=== PATIENT | male | born 1975 | race Two or more races ===

== ENCOUNTER 2024-05-03 16:21 | Inpatient (IN) | payer OTHER ==
[~2024-05-03] VITALS: Ht 157.5 cm; Wt 48.5 kg
[2024-05-03 17:43] LABS: BASOPHILS % (AUTO) 0.3 % (0.0-2.0); EOSINOPHILS # (AUTO) 0.2 K/uL (0.0-0.7); EOSINOPHILS % (AUTO) 1.3 % (0.0-6.0); HEMATOCRIT 32 % (39-51); HEMOGLOBIN 10.4 g/dL (13.5-17.5); LYMPHOCYTES # (AUTO) 1.6 K/uL (0.8-4.8); LYMPHOCYTES % (AUTO) 12.2 % (20.0-44.0); MEAN CORPUSCULAR HEMOGLOBIN 30 PG (26.0-33.0); MEAN CORPUSCULAR HGB CONC 33 g/dl (31.0-36.0); MEAN CORPUSCULAR VOLUME 91 fL (80-96); MONOCYTES % (AUTO) 7.9 % (2.0-12.0); NEUTROPHILS # (AUTO) 10.1 K/uL (1.8-8.9); NEUTROPHILS % (AUTO) 78.3 % (43.0-81.0); PLATELET COUNT (AUTO) 308 K/uL (150-450); RED BLOOD CELL COUNT(AUTO) 3.46 MIL/uL (4.5-6.0); RED CELL DISTRIBUTION WIDTH 17.1 % (11.5-15.0); WHITE BLOOD COUNT (AUTO) 12.9 K/uL (4.3-11.0)
[2024-05-03 18:01] LABS: INR 1.03 (0.91-1.10); PARTIAL THROMBOPLASTIN TIME 22.1 SEC (24.3-34.3); PROTHROMBIN TIME 10.6 SECS (9.2-11.1)
[2024-05-03 18:16] LABS: POTASSIUM 4.2 mmol/L (3.5-5.1); SODIUM SERUM 140 mmol/L (136-145)
[2024-05-03 18:17] LABS: CALCIUM, SERUM 9.5 mg/dL (8.5-10.1); CARBON DIOXIDE 30 mmol/L (21-32); CHLORIDE 104 mmol/L (98-107); CREATININE 0.7 mg/dL (0.6-1.3); GLUCOSE 112 mg/dL (74-106); UREA NITROGEN, BLOOD 19 mg/dL (7-18)
[2024-05-03 18:23] LABS: ALANINE AMINOTRANSFERASE 52 U/L (12-78); ALBUMIN 3.2 g/dL (3.4-5.0); ALKALINE PHOSPHATASE 101 U/L (46-116); ASPARTATE AMINOTRANSFERASE 29 U/L (15-37); BILIRUBIN,DIRECT 0.1 mg/dL (0.0-0.2); BILIRUBIN,TOTAL 0.6 mg/dL (0.2-1.0)
[2024-05-03 18:27] LABS: NT-PRO BNP 134 pg/mL (0-125); TOTAL PROTEIN, SERUM 7.5 g/dL (6.4-8.2)
[2024-05-03] MEDS ORDERED: HYDR-4075 GT (19:52)
[2024-05-03] MEDS ORDERED: ATOR80TA GT (19:52)
[2024-05-03] MEDS ORDERED: CHLO473M5 PO (19:52)
[2024-05-03] MEDS ORDERED: QUET25TA GT ×2 (19:52)
[2024-05-03] MEDS ORDERED: [UNRECOGNIZED DRUG - CODE] IR (19:52)
[2024-05-03] MEDS ORDERED: DOCU100C36 GT (19:52)
[2024-05-03] MEDS ORDERED: LACT-96 GT (19:52)
[2024-05-03] MEDS ORDERED: ACET160L44 GT (19:52)
[2024-05-03] MEDS ORDERED: MULT9LIQ9 GT (19:52)
[2024-05-03] MEDS ORDERED: HYDR-4303 GT (19:52)
[2024-05-03] MEDS ORDERED: NA P133E RC (19:52)
[2024-05-03] MEDS ORDERED: IPRA3AMP23 NEB ×2 (19:52)
[2024-05-03] MEDS ORDERED: MAGN400O6 GT (19:52)
[2024-05-03] MEDS ORDERED: HYDR-4209 GT (19:52)
[2024-05-03] MEDS: ACETAMINOPHEN 650 MG/20.3 ML UDC GT PRN (23:28)
[2024-05-03] MEDS ORDERED: LORAZEPAM INJ 2 MG/ML VIAL IV PRN (23:30)
[2024-05-03] MEDS ORDERED: Medication Not On Formulary EA (Ipratropium/Albuterol Sulfate (Duoneb 2.5-0.5 Mg/3 Ml So NEB PRN (23:30)
[2024-05-03] MEDS ORDERED: MAGNESIUM HYDROXIDE 30 ML UDC GT PRN (23:30)
[2024-05-03] MEDS ORDERED: HYDROCODONE/APAP 5/325MG TABLET GT PRN ×2 (23:30)
[2024-05-03] MEDS ORDERED: NA PHOS,M-B/NA PHOS,DI-BA 1 EA ENEMA RC PRN (23:30)
[2024-05-03] MEDS ORDERED: MAG HYDROX/AL HYDROX/SIMETH 30 ML UDC GT PRN (23:30)
[2024-05-03] MEDS ORDERED: hydrALAZINE HCL 10 MG TABLET GT PRN (23:30)
[2024-05-03] MEDS ORDERED: ACETAMINOPHEN 325 MG TABLET PO PRN (23:30)
[2024-05-03] MEDS ORDERED: ZOLPIDEM TARTRATE 5 MG TABLET PO PRN (23:30)
[2024-05-03] MEDS ORDERED: MAGNESIUM HYDROXIDE 30 ML UDC PO PRN (23:30)
[2024-05-03] MEDS ORDERED: JEVITY 1.5 CAL LIQUID 1,000 ML BOTTLE GT SCH (23:30)
[2024-05-03] MEDS ORDERED: ONDANSETRON HCL/PF 4 MG/2 ML VIAL IVP PRN (23:30)
[2024-05-03] MEDS ORDERED: Z GUARD REMEDY 4 OZ OINT TP PRN (23:30)
[2024-05-03] MEDS ORDERED: Medication Not On Formulary EA (Acetaminophen 20 ML) GT PRN (23:30)
[2024-05-04] VITALS (11 sets, daily range): BP systolic 101–146; BP diastolic 72–85; TEMP 97.9–98.5; O2SAT 95–100
[2024-05-04] MEDS ORDERED: Medication Not On Formulary EA (Ipratropium/Albuterol Sulfate (Duoneb 2.5-0.5 Mg/3 Ml So NEB SCH
[2024-05-04] MEDS: ENOXAPARIN SODIUM 40 MG/0.4 ML DISP.SYRIN SQ SCH (00:12)
[2024-05-04] MEDS ORDERED: IPRATROPIUM NEB FS 0.5 MG/2.5 ML AMPUL.NEB IH PRN (00:30)
[2024-05-04] MEDS ORDERED: ALBUTEROL FS 2.5 MG/0.5 ML VIAL.NEB NEB PRN (00:30)
[2024-05-04] MEDS ORDERED: LEVETIRACETAM (500MG) 500 MG/5 ML VIAL IV ONE (00:38)
[2024-05-04] MEDS: LEVETIRACETAM (500MG) 500 MG in IV NS 0.9% 100 ML IV SCH ×2 (00:49→09:04)
[2024-05-04] MEDS: ALBUTEROL FS 2.5 MG/0.5 ML VIAL.NEB NEB SCH (03:30)
[2024-05-04] MEDS: IPRATROPIUM NEB FS 0.5 MG/2.5 ML AMPUL.NEB IH SCH (03:31)
[2024-05-04 07:05] LABS: BASOPHILS % (AUTO) 0.2 % (0.0-2.0); EOSINOPHILS # (AUTO) 0.1 K/uL (0.0-0.7); EOSINOPHILS % (AUTO) 1.1 % (0.0-6.0); HEMATOCRIT 30 % (39-51); MEAN CORPUSCULAR HEMOGLOBIN 30 PG (26.0-33.0); MEAN CORPUSCULAR HGB CONC 33 g/dl (31.0-36.0); MEAN CORPUSCULAR VOLUME 91 fL (80-96); MONOCYTES # (AUTO) 0.8 K/uL (0.1-1.30); NEUTROPHILS # (AUTO) 5.5 K/uL (1.8-8.9); NEUTROPHILS % (AUTO) 65.7 % (43.0-81.0); PLATELET COUNT (AUTO) 261 K/uL (150-450); RED CELL DISTRIBUTION WIDTH 17.1 % (11.5-15.0); WHITE BLOOD COUNT (AUTO) 8.4 K/uL (4.3-11.0)
[2024-05-04 07:10] LABS: CALCIUM, SERUM 9.3 mg/dL (8.5-10.1); CREATININE 0.5 mg/dL (0.6-1.3); MAGNESIUM 1.9 mg/dL (1.8-2.4); PHOSPHORUS 4.4 mg/dL (2.5-4.9); POTASSIUM 3.7 mmol/L (3.5-5.1)
[2024-05-04 07:59] LABS: THYROID STIMULATING HORMONE 1.78 uIU/mL (0.358-3.74)
[2024-05-04] MEDS: PANTOPRAZOLE 40 MG TABLET.DR PO SCH (08:11)
[2024-05-04] MEDS ORDERED: ACETIC ACID IR SCH (09:00)
[2024-05-04] MEDS: NEOMY SULF/BACITRAC ZN/POLY 15 GM TUBE TP SCH (09:03)
[2024-05-04] MEDS: MULTIVITAMINS,THERAGRAN 1 UDTAB TABLET GT SCH (09:03)
[2024-05-04] MEDS: QUETIAPINE FUMARATE 25 MG TABLET GT SCH ×2 (09:03→21:26)
[2024-05-04] MEDS: DOCUSATE SODIUM 100 MG CAPSULE PO SCH (09:03)
[2024-05-04] MEDS ORDERED: JEVITY 1.2 CAL 1,000 ML BOTTLE GT SCH (11:30)
[2024-05-04] MEDS: JEVITY 1.2 CAL 1,000 ML BOTTLE GT SCH (12:35)
[2024-05-04] MEDS: ACETIC ACID IR SCH (14:32)
[2024-05-04] MEDS: ATORVASTATIN 40 MG TABLET GT SCH (21:26)
[2024-05-05] VITALS (11 sets, daily range): BP systolic 110–132; BP diastolic 69–94; TEMP 97.9–98.4; O2SAT 94–100
[2024-05-05] MEDS ORDERED: CT SWABBABLE VALVE TRANS SET 1 EA INFUS.SET MC ONE (16:28)
[2024-05-05] MEDS ORDERED: IV NS 0.9% 250 ML IV ONE (16:28)
[2024-05-05] MEDS ORDERED: IOHEXOL-350 100 ML VIAL IV ONE (16:28)
[2024-05-05 18:21] LABS: THYROID STIMULATING HORMONE 0.71 uIU/mL (0.358-3.74)
[2024-05-05] MEDS: MUPIROCIN OINT 2% 22 GM TUBE NS SCH (20:36)
[2024-05-06] VITALS (9 sets, daily range): BP systolic 118–123; BP diastolic 76–87; TEMP 97.7–98.1; O2SAT 96–100
[2024-05-06] MEDS ORDERED: CT SWABBABLE VALVE TRANS SET 1 EA INFUS.SET MC ONE (10:53)
[2024-05-06] MEDS ORDERED: IV NS 0.9% 250 ML IV ONE (10:53)
[2024-05-06] MEDS ORDERED: IOHEXOL-350 100 ML VIAL IV ONE (10:53)
[2024-05-10 00:15] LABS: FOLIC ACID 18.3 ng/mL (>3.0)
== END 2024-05-06 21:07 | DRG 53 ==
LOC: ER 16:30 → TELE1 19:34 → MEDSG1 05-04 11:44
PROVIDERS: ADMIT Student in an Organized Health Care Education/Training Program
DX: R56.9 Unspecified convulsions (principal); G93.49 Other encephalopathy; E44.0 Moderate protein-calorie malnutrition; J96.10 Chronic respiratory failure, unspecified whether with hypoxia or hypercapnia; G93.89 Other specified disorders of brain; E86.0 Dehydration; Z93.0 Tracheostomy status; K76.0 Fatty (change of) liver, not elsewhere classified; Z20.822 Contact with and (suspected) exposure to COVID-19; Z93.1 Gastrostomy status; R13.10 Dysphagia, unspecified; Z74.01 Bed confinement status; D72.829 Elevated white blood cell count, unspecified; R79.89 Other specified abnormal findings of blood chemistry; D64.9 Anemia, unspecified; E78.5 Hyperlipidemia, unspecified; Z86.73 Personal history of transient ischemic attack (TIA), and cerebral infarction without residual deficits; Z91.199 Patient's noncompliance with other medical treatment and regimen due to unspecified reason; S21.202A Unspecified open wound of left back wall of thorax without penetration into thoracic cavity, initial encounter; X58.XXXA Exposure to other specified factors, initial encounter; Y92.9 Unspecified place or not applicable; L98.9 Disorder of the skin and subcutaneous tissue, unspecified
CPT/HCPCS: 36415; 70450-TC; 70496-TC; 70498-TC; 71045-TC; 80048-TC; 80061-TC; 80076-TC; 82607-TC; 82962-TC; 83735-TC; 83880; 83921; 84100-TC; 84425; 84443-TC; 84484-TC; 85025-TC; 85730-TC; 86850-TC; 87081-TC; 94799-TC; 95819-TC; A4223; G0378; J1650; J1953; J7030; J7050; Q9967